=== PATIENT | female | born 2000 | race Caucasian/White ===

== ENCOUNTER 2020-12-31 03:57 | Emergency (ER) | payer OTHER ==
[~2020-12-31] VITALS: Ht 162.6 cm; Wt 54.0 kg
[2020-12-31] MEDS ORDERED: ONDANSETRON 2MG/ML, 2ML ONE (04:00)
--- NOTE | 2020-12-31 04:27 | NUR ---
PT BIB [facility] AFTER PT WAS PICKED UP FOR INTOXICATION, AND STATING THAT SHE THINKS SOMETHING WAS SLIPPED INTO HER EDIBLE. PT ALSO TOOK ONE "LARGE" EDIBLE WHILE DRINKING. PT WAS ALTERED AND HER FRIENDS CALLED THE AMBULANCE. PT ARRIVES AWAKE AND ALERT TO PLACE AND SELF, MAINTAINING GOOD AIRWAY AND GOOD AERATION AND OXYGENATION. PT PLACED ON CR MONITOR, SIDERAILS UP IN BED X2 AND CALL LIGHT WITHIN REACH. ASSISTANT SHIFT SUPERVISOR TO BEDSIDE TO DRAW BLOOD AFTER MD TO BEDSIDE TO EVAL PT, AND WRITE ORDERS. PT HAS A 20G IV TO RIGHT ARM. IVF NS STARTED TO RUN OVER ONE HOUR, AND ZOFRAN GIVEN FOR NAUSEA.
[2020-12-31 04:30] LABS: BASOPHILS % (AUTO) 0 % (0-1); EOSINOPHILS % (AUTO) 0 % (1-7); LYMPHOCYTES % (AUTO) 11 % (22-44); MEAN CORPUSCULAR HEMOGLOBIN 28.9 pg (27.0-34.8); MEAN CORPUSCULAR HGB CONC 33.5 g/dL (32.4-35.8); MEAN PLATELET VOLUME 8.4 fL (7.4-10.4); MONOCYTES % (AUTO) 6 % (2-9); NEUTROPHILS % (AUTO) 82 % (42-75); PLATELET COUNT 274 x10^3/uL (130-400); RED BLOOD COUNT 4.79 x10^6/uL (3.82-5.3); RED CELL DISTRIBUTION WIDTH 14.4 % (9.6-15.2)
[2020-12-31] MEDS ORDERED: ONDANSETRON 2MG/ML, 2ML IVPush ONE (04:30)
[2020-12-31] MEDS ORDERED: SODIUM CHLORIDE 0.9% 1,000ML IVBOLUS ONE (04:30)
[2020-12-31 04:33] LABS: MD NO
[2020-12-31 04:43] LABS: ALBUMIN 3.7 g/dL (3.4-5.0); ANION GAP 9 mmol/L (5-15); CALCIUM 8.7 mg/dL (8.5-10.1); CHLORIDE 107 mmol/L (98-107); CREATININE 0.79 mg/dL (0.55-1.02)
[2020-12-31 04:45] LABS: SALICYLATE LEVEL < 1.7 mg/dL (2.8-20.0)
--- NOTE | 2020-12-31 05:10 | NUR ---
BEDSIDE REPORT FROM EVELIO RN, PT CARE TRANSFERRED AT THIS TIME. PT RESTING ON GURNEY, NAD, AIRWAY PROTECTED BY SELF, EVEN AND UNLABORED RESPIRATIONS NOTED, EYES CLOSED, SO AT BS, MONITORING IN PLACE, BED IN LOWEST, RAILS ENGAGED, WCTM.
--- NOTE | 2020-12-31 06:23 | NUR ---
PT RESTING ON [place]ERLIN[place], NAD, NO CHANGE IN CONDITION, BED IN LOWEST, RAILS ENGAGED, CALL LIGHT ON LAP. WCTM. MTF.
--- NOTE | 2020-12-31 06:49 | NUR ---
Bedside report from ANTHONY Krishnan. This RN to assume full care. Pt arousable to verbal stimuli. States unable to walk at this time.
--- NOTE | 2020-12-31 06:50 | NUR ---
REPORT TO SRI CRUZ, PT CARE TRANSFERRED AT THIS TIME.
--- NOTE | 2020-12-31 07:42 | NUR ---
TASK RN: PT AMBULATORY W/ A STEADY GAIT. RETURNED TO ROOM W/O INCIDNET. VSS, NADN. PIV REMOVED. PT CALLING FOR RIDE.
== END 2020-12-31 08:07 | disposition home or self-care (01) ==
LOC: ED 07:30 → MERGE 07:30 → ED 08:07
DX: F10.121 Alcohol abuse with intoxication delirium (principal); F12.122 Cannabis abuse with intoxication with perceptual disturbance; R11.2 Nausea with vomiting, unspecified; F17.210 Nicotine dependence, cigarettes, uncomplicated; Y90.0 Blood alcohol level of less than 20 mg/100 ml
CPT/HCPCS: 36415; 80048; 80299; 80320; 82040; 84703; 85025; 96361; 96374; 99285; J2405; J7030; 80329; G0480